=== PATIENT | female | born 1950 | race Caucasian/White ===

== ENCOUNTER 2023-02-06 17:58 | Inpatient (IN) | payer OTHER ==
[~2023-02-06] VITALS: Ht 165.1 cm; Wt 73.5 kg
[2023-02-06 18:00] VITALS: BP_SYST 150; PULSE 110; RESP 20; TEMP 98; O2SAT 100
[2023-02-06] MEDS ORDERED: PIPERACILLIN/TAZO 3.375 GM in D5W 50 ML IV ONE (18:15)
[2023-02-06] MEDS ORDERED: levETIRAcetam 1,500 MG in NS 85 ML IV ONE (18:15)
[2023-02-06] MEDS ORDERED: NACL 0.9% 1,000 ML IV ONE (18:15)
[2023-02-06 18:35] LABS: BLOOD GAS PH 7.489 (7.350-7.450)
[2023-02-06 18:36] LABS: ABG O2 SAT% ESTIMATE 99.4 % (94.0-100.0); ALLEN'S TEST POSITIVE (P); BLOOD GAS BASE EXCESS 5.5 mmol/L (-3.0-3.0); BLOOD GAS HCO3 29.2 mmol/L (21.0-27.0); BLOOD GAS PCO2 39.3 mmHg (35.0-45.0); BLOOD GAS PO2 190.4 mmHg (75.0-100.0)
[2023-02-06 19:43] LABS: BASOPHILS % (AUTO) 0.6 % (0.0-2.0); EOSINOPHILS # (AUTO) 0.2 K/uL (0.0-0.4); EOSINOPHILS % (AUTO) 2.8 % (0.0-4.0); HEMATOCRIT 32.4 % (36-48); HEMOGLOBIN 10.9 g/dL (12.0-16.0); LYMPHOCYTES % (AUTO) 16.8 % (20.5-51.5); MEAN CORPUSCULAR HEMOGLOBIN 32 pg (27-31); MEAN CORPUSCULAR HGB CONC 34 % (32-36); MEAN CORPUSCULAR VOLUME 95 fL (79.0-98.0); MONOCYTES # (AUTO) 0.6 K/uL (0.0-1.0); MONOCYTES % (AUTO) 10.3 % (1.7-9.3); NEUTROPHILS # (AUTO) 4.1 K/uL (1.8-7.7); NEUTROPHILS % (AUTO) 69.5 % (40.0-70.0); PLATELET COUNT (AUTO) 204 K/uL (130-430); RED CELL DISTRIBUTION WIDTH 13.5 % (9.0-15.0); WHITE BLOOD COUNT (AUTO) 5.8 K/uL (4.8-10.8)
[2023-02-06 19:59] LABS: ANION GAP 5 (5-15); CALCIUM 9.1 mg/dL (8.4-11.0); CARBON DIOXIDE 32 mmol/L (23-29); CHLORIDE 99 mmol/L (98-107); CREATININE 0.99 mg/dL (0.55-1.30); GLUCOSE 111 mg/dL (74-106); POTASSIUM 3.5 mmol/L (3.5-5.1); SODIUM SERUM 136 mmol/L (136-145); UREA NITROGEN, BLOOD 16 mg/dL (8-21)
[2023-02-06] MEDS ORDERED: PIPERACILLIN/TAZOBACTAM 3.375 GM/VIAL (ZOSYN) IV ONE (20:01)
[2023-02-06 20:02] LABS: INR 1.1 (0.8-1.2); PROTHROMBIN TIME 11.6 SECS (9.5-12.5)
[2023-02-06 20:05] LABS: ALANINE AMINOTRANSFERASE 44 U/L (12-78); ALBUMIN 2.2 g/dL (3.4-4.8); ASPARTATE AMINOTRANSFERASE 90 U/L (10-37); BILIRUBIN,DIRECT 0.2 mg/dL (0.0-0.3); TOTAL BILIRUBIN 0.5 mg/dL (0.0-1.0); TOTAL PROTEIN, SERUM 6.3 g/dL (6.4-8.3)
[2023-02-06 21:56] LABS: BILIRUBIN,URINE NEGATIVE (NEGATIVE); BLOOD, URINE NEGATIVE (NEGATIVE); CLARITY/URINE CLEAR (CLEAR); COLOR,URINE YELLOW (YELLOW); GLUCOSE,URINE NEGATIVE (NEGATIVE); KETONES,URINE NEGATIVE (NEGATIVE); LEUKOCYTE ESTERASE ,URINE 2+ (NEGATIVE); NITRITE, URINE NEGATIVE (NEGATIVE); PH,URINE 7.5 (5.0-8.0); PROTEIN URINE NEGATIVE (NEGATIVE); UROBILINOGEN,URINE 0.2 (0.2-1.0)
[2023-02-06 23:38] LABS: RBC,URINE NONE SEEN /HPF (0-3)
[2023-02-06 23:39] LABS: BACTERIA,URINE FEW /HPF (None Seen); MUCUS,URINE None Seen /LPF (None Seen); URINE AMORPHOUS PHOSPHATES 1+ /HPF (None Seen)
[2023-02-07 01:51] VITALS: BP_SYST 126; PULSE 75; RESP 12; TEMP 96.8; O2SAT 100
[2023-02-07] MEDS ORDERED: HYDR-3917 PO (02:45)
[2023-02-07] MEDS ORDERED: LIP40 PO (02:45)
[2023-02-07] MEDS ORDERED: OXCA150T5 PO (02:45)
[2023-02-07] MEDS ORDERED: RIFA200T10 PO (02:45)
[2023-02-07] MEDS ORDERED: LAM25 PO (02:45)
[2023-02-07] MEDS ORDERED: MOM PO (02:45)
[2023-02-07] MEDS ORDERED: LEVE1000 PO (02:45)
[2023-02-07] MEDS ORDERED: FLEETMO RC (02:45)
[2023-02-07] MEDS ORDERED: SER25 PO (02:45)
[2023-02-07] MEDS ORDERED: ASPI-1155 PO (02:45)
[2023-02-07] MEDS ORDERED: SENN8.6T19 PO (02:45)
[2023-02-07] MEDS ORDERED: BISACODYL RC (02:45)
[2023-02-07] MEDS ORDERED: LACT10SO6 PO (02:45)
[2023-02-07] MEDS ORDERED: ACET-73 PO (02:45)
[2023-02-07 08:00] VITALS: BP_SYST 132; PULSE 79; RESP 16; TEMP 99.6; O2SAT 96
[2023-02-07] MEDS ORDERED: NA P133E41 RC (08:13)
[2023-02-07] MEDS ORDERED: BISA10SU61 RC (08:13)
[2023-02-07] MEDS: levETIRAcetam 500 MG IV PREMIX 100 ML IV SCH ×2 (08:38→20:58)
[2023-02-07] MEDS: cefTRIAXone 1 GM IVPB PREMIX 50 ML IV SCH (09:38)
[2023-02-07 12:06] VITALS: BP_SYST 129; PULSE 67; RESP 17; TEMP 98.9; O2SAT 97
[2023-02-07] MEDS ORDERED: MILK OF MAGNESIA 30 ML UDC PO SCH (13:45)
[2023-02-07] MEDS: RIFAXIMIN 200 MG TABLET PO SCH ×2 (14:45→20:59)
[2023-02-07 16:36] VITALS: BP_SYST 130; PULSE 76; RESP 16; TEMP 99.1; O2SAT 96
[2023-02-07 19:00] VITALS: O2SAT 98
[2023-02-07 20:00] VITALS: BP_SYST 104; PULSE 80; RESP 12; TEMP 97.9; O2SAT 92
[2023-02-07] MEDS: LACTULOSE 20 GM/30 ML UDC PO SCH (20:58)
[2023-02-07] MEDS: levETIRAcetam 500 MG TABLET PO SCH (20:59)
[2023-02-07] MEDS: QUEtiapine FUMARATE 25 MG TABLET PO SCH (20:59)
[2023-02-07] MEDS: SENNOSIDES 8.6 MG TABLET PO SCH (20:59)
[2023-02-07] MEDS: LamoTRIgine 25 MG TABLET PO SCH (21:05)
[2023-02-07] MEDS: OXcarbazepine 150 MG TABLET(TRILEPTAL) PO SCH (21:09)
[2023-02-08 00:16] VITALS: BP_SYST 103; PULSE 80; RESP 13; TEMP 98; O2SAT 93
[2023-02-08 07:43] VITALS: BP_SYST 120; PULSE 78; RESP 13; TEMP 96.1; O2SAT 97
[2023-02-08 07:43] LABS: BASOPHILS % (AUTO) 0.7 % (0.0-2.0); EOSINOPHILS # (AUTO) 0.2 K/uL (0.0-0.4); EOSINOPHILS % (AUTO) 4.5 % (0.0-4.0); HEMATOCRIT 30.7 % (36-48); HEMOGLOBIN 10.3 g/dL (12.0-16.0); LYMPHOCYTES # (AUTO) 1.4 K/uL (1.0-5.5); LYMPHOCYTES % (AUTO) 28.4 % (20.5-51.5); MEAN CORPUSCULAR HEMOGLOBIN 32 pg (27-31); MEAN CORPUSCULAR HGB CONC 34 % (32-36); MEAN CORPUSCULAR VOLUME 96 fL (79.0-98.0); MONOCYTES # (AUTO) 0.6 K/uL (0.0-1.0); MONOCYTES % (AUTO) 12.5 % (1.7-9.3); NEUTROPHILS # (AUTO) 2.7 K/uL (1.8-7.7); NEUTROPHILS % (AUTO) 53.9 % (40.0-70.0); PLATELET COUNT (AUTO) 190 K/uL (130-430); RED BLOOD CELL COUNT(AUTO) 3.18 MIL/uL (4.2-6.2); RED CELL DISTRIBUTION WIDTH 13.7 % (9.0-15.0); WHITE BLOOD COUNT (AUTO) 5.1 K/uL (4.8-10.8)
[2023-02-08 07:47] LABS: ANION GAP 3 (5-15); CARBON DIOXIDE 30 mmol/L (23-29); CHLORIDE 105 mmol/L (98-107); CREATININE 0.74 mg/dL (0.55-1.30); GLUCOSE 99 mg/dL (74-106); SODIUM SERUM 138 mmol/L (136-145); UREA NITROGEN, BLOOD 13 mg/dL (8-21)
[2023-02-08 09:00] VITALS: O2SAT 97
[2023-02-08] MEDS: SENNOSIDES 8.6 MG TABLET PO SCH ×2 (09:00→20:39)
[2023-02-08] MEDS: LamoTRIgine 25 MG TABLET PO SCH ×2 (09:19→21:53)
[2023-02-08] MEDS: OXcarbazepine 150 MG TABLET(TRILEPTAL) PO SCH ×2 (09:19→21:53)
[2023-02-08] MEDS: ATORVASTATIN 20 MG TABLET PO SCH (09:19)
[2023-02-08] MEDS: ASPIRIN 81 MG TAB.CHEW PO SCH (09:19)
[2023-02-08] MEDS: RIFAXIMIN 200 MG TABLET PO SCH ×3 (09:20→20:39)
[2023-02-08] MEDS: levETIRAcetam 500 MG TABLET PO SCH ×2 (09:20→20:38)
[2023-02-08] MEDS: LACTULOSE 20 GM/30 ML UDC PO SCH ×2 (09:20→21:00)
[2023-02-08] MEDS: cefTRIAXone 1 GM IVPB PREMIX 50 ML IV SCH (09:21)
[2023-02-08 12:00] VITALS: BP_SYST 137; PULSE 80; RESP 20; TEMP 98.4; O2SAT 96
[2023-02-08 16:42] VITALS: BP_SYST 144; PULSE 98; RESP 20; TEMP 98.4; O2SAT 96
[2023-02-08 20:00] VITALS: BP_SYST 135; PULSE 89; RESP 20; TEMP 98.5; O2SAT 96
[2023-02-08] MEDS: QUEtiapine FUMARATE 25 MG TABLET PO SCH (20:38)
[2023-02-09] VITALS (7 sets, daily range): BP systolic 109–135; PULSE 72–94; RESP 16–18; TEMP 97.8–99.9; O2SAT 91–97
[2023-02-09] MEDS: LamoTRIgine 25 MG TABLET PO SCH ×2 (09:42→20:55)
[2023-02-09] MEDS: ASPIRIN 81 MG TAB.CHEW PO SCH (09:43)
[2023-02-09] MEDS: RIFAXIMIN 200 MG TABLET PO SCH ×3 (09:44→20:57)
[2023-02-09] MEDS: levETIRAcetam 500 MG TABLET PO SCH ×2 (09:44→21:00)
[2023-02-09] MEDS: OXcarbazepine 150 MG TABLET(TRILEPTAL) PO SCH ×2 (09:44→21:00)
[2023-02-09] MEDS: ATORVASTATIN 20 MG TABLET PO SCH (09:44)
[2023-02-09] MEDS: SENNOSIDES 8.6 MG TABLET PO SCH ×2 (09:45→21:00)
[2023-02-09] MEDS: LACTULOSE 20 GM/30 ML UDC PO SCH ×2 (09:45→21:01)
[2023-02-09] MEDS: cefTRIAXone 1 GM IVPB PREMIX 50 ML IV SCH (09:45)
[2023-02-09] MEDS ORDERED: SULF1TAB48 PO ×3 (11:53→14:41)
[2023-02-09] MEDS ORDERED: OXCA150T5 PO (14:41)
[2023-02-09] MEDS ORDERED: LEVE1000 PO ×2 (14:41)
[2023-02-09] MEDS ORDERED: LAM25 PO (14:41)
[2023-02-09] MEDS ORDERED: RIFA200T10 PO (15:41)
[2023-02-09] MEDS: QUEtiapine FUMARATE 25 MG TABLET PO SCH (21:00)
[2023-02-10 00:35] VITALS: BP_SYST 116; PULSE 68; RESP 15; TEMP 98.3; O2SAT 100
[2023-02-10 07:49] VITALS: BP_SYST 129; PULSE 90; RESP 17; TEMP 99.4; O2SAT 96
[2023-02-10 08:00] VITALS: O2SAT 96
[2023-02-10] MEDS: ASPIRIN 81 MG TAB.CHEW PO SCH (09:16)
[2023-02-10] MEDS: cefTRIAXone 1 GM IVPB PREMIX 50 ML IV SCH (09:16)
[2023-02-10] MEDS: LACTULOSE 20 GM/30 ML UDC PO SCH ×2 (09:16→22:10)
[2023-02-10] MEDS: OXcarbazepine 150 MG TABLET(TRILEPTAL) PO SCH ×2 (09:17→22:09)
[2023-02-10] MEDS: levETIRAcetam 500 MG TABLET PO SCH ×2 (09:17→22:07)
[2023-02-10] MEDS: RIFAXIMIN 200 MG TABLET PO SCH ×3 (09:17→22:09)
[2023-02-10] MEDS: LamoTRIgine 25 MG TABLET PO SCH ×2 (09:17→22:09)
[2023-02-10] MEDS: SENNOSIDES 8.6 MG TABLET PO SCH ×2 (09:18→22:10)
[2023-02-10] MEDS: ATORVASTATIN 20 MG TABLET PO SCH (09:24)
[2023-02-10 11:28] VITALS: BP_SYST 126; PULSE 89; RESP 15; TEMP 97.7; O2SAT 95
[2023-02-10 15:34] VITALS: BP_SYST 125; PULSE 82; RESP 16; TEMP 97.9; O2SAT 93
[2023-02-10 20:00] VITALS: BP_SYST 115; PULSE 94; RESP 18; TEMP 100.5; O2SAT 93; O2SAT 94
[2023-02-10] MEDS ORDERED: ACETAMINOPHEN 325 MG TABLET PO PRN (20:30)
[2023-02-10] MEDS: QUEtiapine FUMARATE 25 MG TABLET PO SCH (22:09)
[2023-02-11] VITALS: BP_SYST 111; PULSE 78; RESP 18; TEMP 98.2; O2SAT 96
[2023-02-11 05:40] LABS: EOSINOPHILS # (AUTO) 0.2 K/uL (0.0-0.4); EOSINOPHILS % (AUTO) 4.4 % (0.0-4.0); HEMATOCRIT 27.9 % (36-48); HEMOGLOBIN 9.6 g/dL (12.0-16.0); LYMPHOCYTES # (AUTO) 1.6 K/uL (1.0-5.5); LYMPHOCYTES % (AUTO) 37.3 % (20.5-51.5); MEAN CORPUSCULAR HEMOGLOBIN 33 pg (27-31); MEAN CORPUSCULAR HGB CONC 34 % (32-36); MEAN CORPUSCULAR VOLUME 95 fL (79.0-98.0); MONOCYTES # (AUTO) 0.6 K/uL (0.0-1.0); MONOCYTES % (AUTO) 15.2 % (1.7-9.3); NEUTROPHILS # (AUTO) 1.8 K/uL (1.8-7.7); NEUTROPHILS % (AUTO) 42.1 % (40.0-70.0); PLATELET COUNT (AUTO) 164 K/uL (130-430); RED BLOOD CELL COUNT(AUTO) 2.94 MIL/uL (4.2-6.2); WHITE BLOOD COUNT (AUTO) 4.2 K/uL (4.8-10.8)
[2023-02-11 05:50] LABS: ALANINE AMINOTRANSFERASE 24 U/L (12-78); ANION GAP 7 (5-15); ASPARTATE AMINOTRANSFERASE 53 U/L (10-37); CALCIUM 9.2 mg/dL (8.4-11.0); CARBON DIOXIDE 26 mmol/L (23-29); CHLORIDE 100 mmol/L (98-107); CREATININE 0.91 mg/dL (0.55-1.30); GLUCOSE 95 mg/dL (74-106); POTASSIUM 3.5 mmol/L (3.5-5.1); SODIUM SERUM 133 mmol/L (136-145); TOTAL BILIRUBIN 0.9 mg/dL (0.0-1.0); TOTAL PROTEIN, SERUM 5.7 g/dL (6.4-8.3); UREA NITROGEN, BLOOD 16 mg/dL (8-21)
[2023-02-11 08:00] VITALS: O2SAT 96
[2023-02-11 08:06] VITALS: BP_SYST 120; PULSE 75; RESP 17; TEMP 98.1; O2SAT 93
[2023-02-11] MEDS: cefTRIAXone 1 GM IVPB PREMIX 50 ML IV SCH (09:35)
[2023-02-11] MEDS: levETIRAcetam 500 MG TABLET PO SCH (09:36)
[2023-02-11] MEDS: LACTULOSE 20 GM/30 ML UDC PO SCH (09:36)
[2023-02-11] MEDS: ASPIRIN 81 MG TAB.CHEW PO SCH (09:36)
[2023-02-11] MEDS: RIFAXIMIN 200 MG TABLET PO SCH ×2 (09:37→15:04)
[2023-02-11] MEDS: LamoTRIgine 25 MG TABLET PO SCH (09:37)
[2023-02-11] MEDS: OXcarbazepine 150 MG TABLET(TRILEPTAL) PO SCH (09:37)
[2023-02-11] MEDS: ATORVASTATIN 20 MG TABLET PO SCH (09:37)
[2023-02-11] MEDS: SENNOSIDES 8.6 MG TABLET PO SCH (09:38)
[2023-02-11 11:24] VITALS: BP_SYST 110; PULSE 85; RESP 16; TEMP 97.9; O2SAT 95
[2023-02-11] MEDS ORDERED: LEVE500T9 PO (14:04)
[2023-02-11 14:20] VITALS: BP_SYST 110; PULSE 85; RESP 18; TEMP 97.9; O2SAT 95
[2023-02-11 15:13] VITALS: BP_SYST 146; PULSE 77; RESP 16; TEMP 97.5; O2SAT 96
== END 2023-02-11 18:00 | disposition home health service (06) | DRG 871 ==
LOC: SED 17:58 → STU 02-07 00:42 → SMU 02-08 19:36
PROVIDERS: ADMIT Internal Medicine; ATTEND Internal Medicine
PROC: 4A00X4Z Measurement of Central Nervous Electrical Activity, External Approach (ICD-10-PCS; principal; 2023-02-08)
DX: A41.9 Sepsis, unspecified organism (principal); E43 Unspecified severe protein-calorie malnutrition; G93.41 Metabolic encephalopathy; N39.0 Urinary tract infection, site not specified; I10 Essential (primary) hypertension; E78.5 Hyperlipidemia, unspecified; G40.909 Epilepsy, unspecified, not intractable, without status epilepticus; Z88.0 Allergy status to penicillin; Z79.82 Long term (current) use of aspirin; Z79.1 Long term (current) use of non-steroidal anti-inflammatories (NSAID); Z79.891 Long term (current) use of opiate analgesic; Z68.27 Body mass index [BMI] 27.0-27.9, adult
CPT/HCPCS: 36415; 36600; 71045; 80048; 80053; 80076; 81000; 81001; 81015; 82140; 82803; 83605; 84484; 85025; 85610-TC; 85730-TC; 87040; 87081; 87086; 93005; 95816; 96365; 96367; 97116-GP; 97163-GP; 97530-GP; 99291; G0378; J0696; J1953; J2543